=== PATIENT | female | born 1970 | race Caucasian/White ===

== ENCOUNTER 2016-07-12 12:03 | Day surgery (SDC) | payer BC ==
[2016-07-12 13:09] VITALS: BMI 30.7
[2016-07-12 13:10] VITALS: TEMP 98.7
[2016-07-12] MEDS ORDERED: SCOPOLAMINE 1.5MG/72HR PATCH TRANSDERM ONE (13:14)
[2016-07-12] MEDS ORDERED: HYDROmorphone 1 MG/ML 1 ML SYRINGE IVP PRN (13:14)
[2016-07-12] MEDS ORDERED: SODIUM CHLORIDE 0.9% 500 ML IV ONE (13:14)
[2016-07-12] MEDS ORDERED: ONDANSETRON 4 MG/2 ML VIAL IVP ONE (13:14)
[2016-07-12] MEDS ORDERED: MIDAZOLAM 2 MG/2 ML VIAL IV PRN (13:14)
[2016-07-12] MEDS ORDERED: DEXAMETHASONE SOD PHOSPHATE 10 MG/ML 1 ML VIAL IV ONE (13:14)
[2016-07-12] MEDS ORDERED: LACTATED RINGERS 1,000 ML IV SCH (13:15)
[2016-07-12] MEDS ORDERED: LIDOCAINE 1% 20 ML VIAL (10MG/ML) FOR IV START INTRADERMA ONE (13:16)
[2016-07-12] MEDS ORDERED: HEPARIN SODIUM,PORCINE 5,000 UNIT/ML 1 ML VIAL SQ ONE (13:19)
--- NOTE | 2016-07-12 13:22 | P.GSHP ---
History of Present Illness H&P Date: 07/12/16 Chief Complaint: Right upper quadrant pain Is a 46-year-old female who presents today for laparoscopic cholecystectomy. Patient has had complaints of right quadrant pain. She had a recent hospital admission for biliary colic. Her ultrasound shows evidence of cholelithiasis. - Constitutional Constitutional: Reports as per HPI Past Medical History Smoking Status: Former smoker Medications and Allergies Home Medications Medication Instructions Recorded Confirmed Type Ciprofloxacin HCl [Cipro] 500 mg PO Q12HR 07/12/16 07/12/16 History Citalopram Hydrobromide 20 mg PO HS 07/12/16 07/12/16 History Hydrocodone/Acetaminophen [[place] 2 tab PO Q6HR PRN 07/12/16 07/12/16 History 5-325] Ondansetron [Zofran] 4 mg PO Q8HR PRN 07/12/16 07/12/16 History metroNIDAZOLE [Flagyl] 500 mg PO TID 07/12/16 07/12/16 History Allergies Allergy/AdvReac Type Severity Reaction Status Date / Time ceftriaxone [From Rocephin] Allergy Rash/Hives Verified 07/12/16 13:03 codeine Allergy Rash/Hives Verified 07/12/16 13:03 Penicillins AdvReac Mild Swelling Verified 07/12/16 12:44 Surgical - Exam Vital Signs Temp Pulse Resp BP Pulse Ox 98.7 F 57 L 16 132/67 95 07/12/16 13:08 07/12/16 13:08 07/12/16 13:08 07/12/16 13:08 07/12/16 13:08 - General well developed, no distress - Eyes PERRL - ENT normal pinna - Neck no masses - Respiratory normal expansion - Cardiovascular Rhythm: regular - Abdomen Mild right upper quadrant pain Abdomen: soft Assessment and Plan Plan: Right upper quadrant pain. Chronic cholecystitis and cholelithiasis. We'll perform laparoscopic cholecystectomy
[2016-07-12] MEDS ORDERED: CLINDAMYCIN 600 MG in DEXTROSE 5% IN WATER 50 ML IVPB STA ×2 (13:28)
[2016-07-12] MEDS ORDERED: HYDROmorphone (PF) 1 MG/ML ONE (13:48)
[2016-07-12] MEDS ORDERED: GLYCOPYRROLATE 0.2 MG/ML 2 ML VIAL ONE (13:48)
[2016-07-12] MEDS ORDERED: KETOROLAC 30 MG/ML 1 ML VIAL ONE (13:48)
[2016-07-12] MEDS ORDERED: MIDAZOLAM 2 MG/2 ML VIAL ONE (13:48)
[2016-07-12] MEDS ORDERED: NEOSTIGMINE 1 MG/ML 10 ML VIAL ONE (13:48)
[2016-07-12] MEDS ORDERED: fentaNYL (PF) 50 MCG/ML 2 ML AMP ONE (13:48)
[2016-07-12] MEDS ORDERED: SUCCINYLCHOLINE CHLORIDE 100 MG/5 ML SYR IV ONE (13:48)
[2016-07-12] MEDS ORDERED: ROCURONIUM BROMIDE 10 MG/ML 10 ML VIAL IV ONE (13:48)
[2016-07-12] MEDS ORDERED: PROPOFOL 10 MG/ML 20 ML VIAL IV ONE (13:48)
[2016-07-12] MEDS ORDERED: LIDOCAINE 1% INJ 10MG/ML (20 ML MDV) ONE (13:48)
[2016-07-12] MEDS ORDERED: BUPIVACAIN-EPI 0.25%-1:200,000 30 ML VIAL SQ ONE ×2 (14:04)
[2016-07-12] MEDS ORDERED: LACTATED RINGERS 1,000 ML IV ONE (14:26)
--- NOTE | 2016-07-12 14:27 | P.OP ---
Date of Procedure: 07/12/16 Preoperative Diagnosis: Cholecystitis Postoperative Diagnosis: Cholecystitis Cholelithiasis Procedure(s) Performed: Laparoscopic cholecystectomy Anesthesia: SHANNON Surgeon: Eder Mojica Estimated Blood Loss (ml): 5 Pathology: other (Gallbladder) Condition: stable Disposition: PACU Description of Procedure: The patient was placed on the operating table. The patient received a general endotracheal tube anesthesia. The patients abdomen was prepped and draped in the usual sterile fashion. Through an infraumbilical stab incision, the fascia of the anterior abdominal wall was grasped with a pair of Kochers and then the Veress needle was placed in the peritoneal cavity. Position of the Veress needle was confirmed with positive drop test. The abdomen was then insufflated. After adequate insufflation, the 10 mm trocar was placed in the peritoneal cavity. Following this the laparoscope was placed in the peritoneal cavity. The patient was placed in the head-up, right side up position and then a 5 mm trocar was placed in the right lateral and right subcostal position under direct visualization. A 8 mm trocar was placed in the epigastric position. The gallbladder was grasped in the fundus and infundibulum. Traction on the gallbladder was placed in the lateral and the cephalad positions. The triangle of Calot was visualized.. The cystic duct was bluntly dissected until the union of the cystic duct and common bile duct was seen. The cystic duct was then divided and sealed with the Harmonic scissors. A PDS Endoloop was then placed throughout the cystic duct stump. The cystic artery divided and sealed with the Harmonic scissors. The gallbladder was then removed from the liver bed using Harmonic scissors. The gallbladder was then extracted through the epigastric port site. Operative field was checked for any bleeding spots and Harmonic scissors was used to coagulate the liver bed. The abdomen was irrigated. The trocars were removed. The skin was closed using interrupted 3-0 Vicryl suture. Dermabond dressing were applied. The patient tolerated the procedure well.
[2016-07-12 15:04] VITALS: RESP 18
[2016-07-12 16:06] VITALS: BP 120/72; PULSE 63
== END 2016-07-12 16:17 | disposition home or self-care (01) ==
LOC: OR 12:03
PROVIDERS: ATTEND Surgery
DX: K80.12 Calculus of gallbladder with acute and chronic cholecystitis without obstruction (principal); Z88.0 Allergy status to penicillin; Z88.5 Allergy status to narcotic agent; Z88.1 Allergy status to other antibiotic agents; Z79.2 Long term (current) use of antibiotics; Z79.899 Other long term (current) drug therapy; Z87.891 Personal history of nicotine dependence
CPT/HCPCS: 47562; 81025; 88304; J2250; J1644; J1100; J2710; J2405; J2001; J3010; J1885; J1170; J0330; J2704

== ENCOUNTER → 2016-10-13 | Outpatient (CLI) | payer BC ==
--- NOTE | 2016-10-17 07:10 | MM ---
Reason for exam: screening (asymptomatic). Last mammogram was performed 1 year and 1 month ago. History: Patient had first child at age 30. Benign US biopsy breast VAD LT of the left breast, September 27, 2015. Benign US biopsy breast add'l VAD LT of the left breast, September 27, 2015. Took hormonal contraceptives for 11 years beginning at age 17. Physical Findings: A clinical breast exam by your physician is recommended on an annual basis and results should be correlated with mammographic findings. MG 3D Screening Mammo W/Cad Bilateral CC and MLO view(s) were taken. Prior study comparison: March 10, 2016, left breast US breast LT. September 27, 2015, left breast MG diagnostic mammo LT wo CAD. September 14, 2015, left breast US breast LT. There are scattered fibroglandular densities. Finding: There are typically benign round calcifications in both breasts. Previous mammotome biopsy in the left breast. There is a chronic nodularity in the right breast. There is no discrete abnormality. ASSESSMENT: Benign, BI-RAD 2 RECOMMENDATION: Routine screening mammogram of both breasts in 1 year.
== END | disposition home or self-care (01) ==
LOC: RADMAMWWP 15:00
PROVIDERS: ATTEND Obstetrics & Gynecology
DX: Z12.31 Encounter for screening mammogram for malignant neoplasm of breast (principal)
CPT/HCPCS: 77063; G0202

== ENCOUNTER → 2019-07-25 | Outpatient (CLI) | payer BC ==
--- NOTE | 2019-07-25 11:30 | P.PAINCN ---
History of Present Illness - Reason for Consult Consult date: 07/25/19 - History of Present Illness THIS ENCOUNTER WAS PERFORMED A TELEMEDICINE VISIT VIA SECURE TWO-WAY VIDEO AND AUDIO TO MINIMIZE RISK AND TRANSMISSION OF COVID-19. This is a 49-year-old patient referred by Dr. Jain with a chief complaint of headaches, these have been present for a long time, however have worsened over the last year. The pain originates in the occipital region, bilaterally and radiate up to head and behind eyes. Pain is rated as 3-10/10. She endorses photophobia and phonophobia, headaches are associated with nausea. She denies aura she denies blurry vision. She has approximately 2 headaches per week, lasting approximately 24 hours. Pain is improved with Excedrin Migraine, closing her eyes, use of ice packs. she has also started doing neck exercises, and this is helping the pain. medications for pain include Excedrin Migraine. She denies numbness, weakness, tingling in upper extremities. Of note, she has been diagnosed with a "small aneurysm and AV malformation" she is currently seeing a neurosurgeon in [place], and is scheduled to have a repeat MRI in August 2019 Patient also denies new-onset weakness, bowel/bladder incontinence, or any other signs or symptoms of cauda equina syndrome. There are no signs of acute intoxication, and no indications of medication diversion or overuse. In addition to above, 13-point review of systems is also negative for chest pain, shortness of breath, changes in vision, changes in hearing, new onset weakness, abdominal pain, diarrhea, extreme fatigue, malaise, fever, skin changes, homicidal or suicidal ideation, or bowel or bladder incontinence. Physical exam : Constitutional: Healthy appearing, well developed, alert, in no acute distress Psychiatric: Judgement and insight intact, alert and oriented Mood and Affect: mood normal, affect appropriate Head and Face: Inspection: normocephalic atraumatic, extraocular movement intact Respiratory: Breathing non-labored nondyspneic Skin: Head and Neck: skin with no lesions of rash Gait: Able to walk without assistive device Neurologic: Sensation grossly intact per patient in C3-T1 dermatomes MSK: Full range of motion of cervical spine, patient denies tenderness to palpation of cervical paraspinals and trapezius muscles bilaterally. Imaging: none on file, although patient states she has been diagnosed with AV malformation and small aneurysm in brain. I do not have the records to review this. Assessment: 1. bilateral occipital neuralgia Plan: 1. Explanation: we discussed performing occipital nerve blocks, patient is am enable to this plan. 2. Investigations: none 3. Counseling: The patient was counseled regarding the importance of continued neck exercises 4. Procedures: we will schedule bilateral occipital nerve blocks when the clinic is open to scheduling elective procedures 5. Consultations: none 6. Medications: no changes 7. Disposition: for above-mentioned procedure Past Medical History Smoking Status: Former smoker Medications and Allergies Home Medications Medication Instructions Recorded Confirmed Type Ciprofloxacin HCl [Cipro] 500 mg PO Q12HR 07/12/16 07/12/16 History Citalopram Hydrobromide 20 mg PO HS 07/12/16 07/12/16 History [Citalopram HBr] Docusate [Colace] 100 mg PO BID #20 capsule 07/12/16 Rx HYDROcodone/APAP 7.5-325MG [[place] 1 each PO Q4H PRN #60 tab 07/12/16 Rx 7.5] Hydrocodone/Acetaminophen [[place] 2 tab PO Q6HR PRN 07/12/16 07/12/16 History 5-325] Ondansetron [Zofran] 4 mg PO Q8HR PRN 07/12/16 07/12/16 History metroNIDAZOLE [Flagyl] 500 mg PO TID 07/12/16 07/12/16 History Allergies Allergy/AdvReac Type Severity Reaction Status Date / Time ceftriaxone [From Rocephin] Allergy Rash/Hives Verified 07/12/16 13:03 codeine Allergy Rash/Hives Verified 07/12/16 13:03 Penicillins AdvReac Mild Swelling Verified 07/12/16 12:44 PQRS Measure Charge Sheet PQRS Narrative: Smoking Status Former smoker Home Medications: Ambulatory Orders Ciprofloxacin HCl [Cipro] 500 mg PO Q12HR 07/12/16 Citalopram Hydrobromide [Citalopram HBr] 20 mg PO HS 07/12/16 Docusate [Colace] 100 mg PO BID #20 capsule 07/12/16 HYDROcodone/APAP 7.5-325MG [[place] 7.5] 1 each PO Q4H PRN #60 tab 07/12/16 Hydrocodone/Acetaminophen [[place] 5-325] 2 tab PO Q6HR PRN 07/12/16 Ondansetron [Zofran] 4 mg PO Q8HR PRN 07/12/16 metroNIDAZOLE [Flagyl] 500 mg PO TID 07/12/16
== END | disposition home or self-care (01) ==
LOC: PNWHC3 07:22
PROVIDERS: ATTEND Anesthesiology
DX: Z53.9 Procedure and treatment not carried out, unspecified reason (principal)

== ENCOUNTER → 2019-08-22 | Outpatient (CLI) | payer BC | END | disposition home or self-care (01) | LOC: LABWHC1 12:02 | PROVIDERS: ATTEND Psychiatry & Neurology Neurology | DX: Z11.59 Encounter for screening for other viral diseases (principal) ==

== ENCOUNTER 2019-08-26 08:20 | Day surgery (SDC) | payer BC ==
[2019-08-25 10:31] VITALS: BMI 37.1
[2019-08-26 08:39] VITALS: RESP 17; TEMP 98.4
[2019-08-26] MEDS ORDERED: LACTATED RINGERS 1,000 ML IV ONE ×2 (08:39→09:41)
[2019-08-26] MEDS ORDERED: ROPIVACAINE 5MG/ML 20ML VIAL ONE (09:28)
[2019-08-26] MEDS ORDERED: DEXAMETHASONE SOD PHOSPHATE 10 MG/ML 1 ML VIAL ONE (09:28)
[2019-08-26] MEDS ORDERED: LACTATED RINGERS 1,000 ML IV SCH (09:30)
[2019-08-26] MEDS ORDERED: IV FLUID CONTINUATION 1,000 ML IV ONE (09:41)
[2019-08-26 09:43] VITALS: BP 145/93; PULSE 66
--- NOTE | 2019-08-26 09:48 | P.PCN ---
Date of Procedure: 08/26/19 Description of Procedure: Pre-operative diagnosis: 1- Bilateral occipital neuralgia Post Operative Diagnosis 1- Bilateral occipital neuralgia Procedure: 1- Bilateral occipital nerve block ANESTHESIA: Local EBL: Minimal PROCEDURE INDICATION: The patient with neck pain and headache secondary to occipital neuralgia unresponsive to conservative treatments. PROCEDURE DESCRIPTION / TECHNIQUE: The patient was seen and identified in the preoperative area. Risks, benefits, complications, and alternatives were discussed with the patient, the patient agreed to proceed with the procedure and signed the consent. IV was started. Vital signs remained stable throughout the procedure. Patient was taken to the OR and time out was completed. The patient was placed in the (sitting ) position on the procedure table. A pillow was placed under the patients chest to increase the cervical interlaminar space. The bilateral occiptial area were prepped with alcohol swab. Critical pause was taken. Vital signs were closely monitored during the procedure. Conscious sedation was used during the procedure to decrease patients anxiety. The right occiptal ridge was palpated and was then accessed with a 25 G needle. Then after negative aspiration, 4 ml of the block solution containing 3ml 0.5% Ropivacaine and 5mg Dexamethasone was injected. Needle was withdrawn intact. Then the same procedure was repeated on the left side and related the left occipital nerve block, after negative aspiration, 4 ml of the block solution containing 3ml 0.5% Ropivacaine and 5mg Dexamethasone was injected. Needle was withdrawn intact. Patient tolerated procedure well. No acute complications.
== END 2019-08-26 09:59 | disposition home or self-care (01) ==
LOC: ORPAIN 08:20
PROVIDERS: ATTEND Anesthesiology
DX: M54.81 Occipital neuralgia (principal); G43.909 Migraine, unspecified, not intractable, without status migrainosus; Z88.5 Allergy status to narcotic agent; Z88.0 Allergy status to penicillin; Z88.1 Allergy status to other antibiotic agents
CPT/HCPCS: 81025; 64405; J1100; J2795

== ENCOUNTER → 2020-01-27 | Outpatient (CLI) | payer BC ==
--- NOTE | 2020-01-28 10:27 | MM ---
Reason for exam: screening (asymptomatic). Last mammogram was performed 1 year and 10 months ago. History: Patient had first child at age 30. Benign US biopsy breast VAD LT of the left breast, September 27, 2015. Benign US biopsy breast add'l VAD LT of the left breast, September 27, 2015. Took hormonal contraceptives for 11 years beginning at age 17. Physical Findings: A clinical breast exam by your physician is recommended on an annual basis and results should be correlated with mammographic findings. MG 3D Screening Mammo W/Cad Bilateral CC and MLO view(s) were taken. Prior study comparison: April 05, 2018, bilateral MG 3d screening mammo w/cad. October 13, 2016, bilateral MG 3d screening mammo w/cad. There are scattered fibroglandular densities. There is chronic nodularity in the right breast. No significant changes when compared with prior studies. ASSESSMENT: Benign, BI-RAD 2 RECOMMENDATION: Routine screening mammogram of both breasts in 1 year.
== END | disposition home or self-care (01) ==
LOC: RADMAMWWP 07:40
PROVIDERS: ATTEND Obstetrics & Gynecology
DX: Z12.31 Encounter for screening mammogram for malignant neoplasm of breast (principal)
CPT/HCPCS: 77063; 77067

== ENCOUNTER → 2021-09-27 | Outpatient (CLI) | payer BC ==
--- NOTE | 2021-09-28 07:50 | MM ---
Reason for Exam: Screening (asymptomatic). Last mammogram was performed 1 year(s) and 8 month(s) ago. Patient History: Menarche at age 12. First Full-Term at age 30. Late child-bearing (after 30). Hormonal Contraceptives for 11 years from age 17 until age 28. 09/27/2015, Benign Core Biopsy on the left side. 09/27/2015, Benign Core Biopsy on the left side. Risk Values: Frances 5 year model risk: 2.2%. NCI Lifetime model risk: 17.1%. Prior Study Comparison: 10/13/2016 Bilateral Screening Mammogram, [facility]. 04/05/2018 Bilateral Screening Mammogram, [facility]. 01/27/2020 Bilateral Screening Mammogram, [facility]. Tissue Density: There are scattered fibroglandular densities. Findings: Analyzed By CAD. There is no suspicious group of microcalcifications or new suspicious mass in either breast. Overall Assessment: Negative, BI-RAD 1 Management: Screening Mammogram of both breasts in 1 year. A clinical breast exam by your physician is recommended on an annual basis and results should be correlated with mammographic findings. Electronically signed and approved by: Bartolo Lua M.D. Radiologis
== END | disposition home or self-care (01) ==
LOC: RADMAMWWP 14:36
PROVIDERS: ATTEND Obstetrics & Gynecology
DX: Z12.31 Encounter for screening mammogram for malignant neoplasm of breast (principal)
CPT/HCPCS: 77063; 77067

== ENCOUNTER → 2022-11-07 | Outpatient (CLI) | payer BC ==
--- NOTE | 2022-11-08 13:51 | MM ---
Reason for Exam: Screening (asymptomatic). Last mammogram was performed 1 year(s) and 1 month(s) ago. Patient History: Menarche at age 12. First Full-Term at age 30. Late child-bearing (after 30). Postmenopausal. Hormonal Contraceptives for 11 years from age 17 until age 28. 09/27/2015, Benign Core Biopsy on the left side. 09/27/2015, Benign Core Biopsy on the left side. Risk Values: Frances 5 year model risk: 2.3%. NCI Lifetime model risk: 16.8%. Prior Study Comparison: 04/05/2018 Bilateral Screening Mammogram, [facility]. 01/27/2020 Bilateral Screening Mammogram, [facility]. 09/27/2021 Bilateral MG 3D screening mammo w/cad, [facility]. Tissue Density: There are scattered fibroglandular densities. Findings: Analyzed By CAD. There is no suspicious group of microcalcifications or new suspicious mass in either breast. Overall Assessment: Benign, BI-RAD 2 Management: Screening Mammogram of both breasts in 1 year. . Patient should continue monthly self-breast exams. A clinical breast exam by your physician is recommended on an annual basis. This exam should not preclude additional follow-up of suspicious palpable abnormalities. Note on Frances scores and lifetime risk: 1. A Frances score greater than 3% is considered moderate risk. If this is the case, consider specialist referral to assess eligibility for a risk reducing agent. 2. If overall lifetime risk for the development of breast cancer is 20% or higher, the patient may qualify for future screening with alternating mammogram and breast MRI. Electronically signed and approved by: Bartolo Lua M.D. Radiologis
== END | disposition home or self-care (01) ==
LOC: RADMAMWWP 16:56
PROVIDERS: ATTEND Family Medicine
DX: Z12.31 Encounter for screening mammogram for malignant neoplasm of breast (principal); Z78.0 Asymptomatic menopausal state
CPT/HCPCS: 77063; 77067